=== PATIENT | male | born 1940 | race Caucasian/White ===

== ENCOUNTER 2018-08-27 02:30 | Inpatient (IN) | payer MEDICARE, OTHER ==
[~2018-08-27] VITALS: Ht 160 cm; Wt 49.9 kg
[2018-08-27] VITALS (7 sets, daily range): BP systolic 110–141; BP diastolic 64–90
[2018-08-27] MEDS ORDERED: Isovue-300 100ml vial INJ PRN (03:00)
[2018-08-27] MEDS ORDERED: Morphine Sulfate 2mg/ml Inj IVP ONE (03:00)
--- NOTE | 2018-08-27 03:00 | Emergency Room Report ---
History of Present Illness General Chief Complaint: Vomiting Source: Patient, Family Member Present Illness HPI This is a 78-year-old [place] male with a history of CAD with 2 stents. He has no abdominal surgery. He presents with chief complaint of epigastric pain and vomiting. Has persistent vomiting since 8 PM, 7 hours prior to arrival. Vomiting is nonbloody nonbilious. No fever or chills. No chest pain. No diarrhea. Pain is sharp and crampy. 7 out of 10. No radiation. Allergies: Coded Allergies: No Known Allergies (Unverified , 08/27/18) Patient History Past Medical History: see triage record, old chart reviewed, CAD Past Surgical History: other Pertinent Family History: none Social History: Denies: smoking Immunizations: other Reviewed Nursing Documentation: PMH: Agreed; PSxH: Agreed Nursing Documentation-PMH Past Medical History: No History, Except For Hx Cardiac Problems: Yes - stents placed 7 years ago Review of Systems Eye: Denies: eye pain, blurred vision ENT: Denies: ear pain, nose congestion, throat swelling Respiratory: Denies: cough, shortness of breath Cardiovascular: Denies: chest pain, palpitations Gastrointestinal: Reports: abdominal pain, nausea, vomiting; Denies: diarrhea Musculoskeletal: Denies: back pain, joint pain Skin: Denies: rash Neurological: Denies: headache, numbness Endocrine: Denies: increased thirst, increased urine Hematologic/Lymphatic: Denies: easy bruising All Other Systems: negative except mentioned in HPI Physical Exam Vital Signs Date Time Temp Pulse Resp B/P (MAP) Pulse Ox O2 Delivery O2 Flow Rate FiO2 08/27/18 02:37 115 16 151/82 100 Room Air vitals unremarkable Sp02 EP Interpretation: reviewed, normal General Appearance: well appearing, no apparent distress, alert Head: normocephalic, atraumatic Eyes: bilateral eye PERRL, bilateral eye EOMI ENT: hearing grossly normal, normal pharynx Neck: full range of motion, supple, no meningismus Respiratory: chest non-tender, lungs clear, normal breath sounds Cardiovascular #1: regular rate, rhythm, no murmur Gastrointestinal: no mass, no organomegaly, no bruit, non-distended, abnormal bowel sounds - hyperactive, tenderness - epigastric Musculoskeletal: back normal, gait/station normal, normal range of motion Neurologic: alert, oriented x3 Psychiatric: mood/affect normal Skin: warm/dry Medical Decision Making Diagnostic Impression: Primary Impression: Abdominal pain Qualified Codes: R10.84 - Generalized abdominal pain Additional Impressions: Nausea & vomiting Qualified Codes: R11.2 - Nausea with vomiting, unspecified Dehydration Ileus ER Course Patient presents with abdominal pain and vomiting. Labs show a slight elevation of lipase. He had a large amount of vomiting here. Better now. CT scan show air-fluid level and most likely ileus. Early small bowel obstruction less likely. Because of his cardiac history, dehydration, intractable vomiting, will admit for IV fluids and antiemetics. I contacted Dr. Bolivar for admission. EKG Diagnostic Results Rate: tachycardiac Rhythm: NSR ST Segments: other - right bundle branch block Rhythm Strip Diag. Results Rhythm Strip Time: 03:00 EP Interpretation: yes Rate: 100 Rhythm: NSR, no PVC's, no ectopy Last Vital Signs Date Time Temp Pulse Resp B/P (MAP) Pulse Ox O2 Delivery O2 Flow Rate FiO2 08/27/18 02:37 115 16 151/82 100 Room Air Status: improved Disposition: ADMITTED INPATIENT Condition: Serious Sanjiv Cuevas MD Aug 27, 2018 03:00
[2018-08-27 03:20] LABS: HEMATOCRIT 44.9 % (42.0-52.0); HEMOGLOBIN 15.6 G/DL (14.2-18.0); MEAN CORPUSCULAR VOLUME 94 FL (80-99); PLATELET COUNT 237 K/UL (150-450); RED CELL DISTRIBUTION WIDTH 10.7 % (11.6-14.8); WHITE BLOOD COUNT 9.3 K/UL (4.8-10.8)
[2018-08-27 03:23] LABS: ANION GAP 10 mmol/L (5-15); BLOOD UREA NITROGEN 11 mg/dL (7-18); CALCIUM 10.2 MG/DL (8.5-10.1); CARBON DIOXIDE 29 MMOL/L (21-32); CHLORIDE 98 MMOL/L (98-107); POTASSIUM 3.6 MMOL/L (3.5-5.1); SODIUM 137 MMOL/L (136-145)
[2018-08-27 03:25] LABS: INR 1.1 (0.9-1.1)
[2018-08-27 03:35] LABS: ALANINE AMINOTRANSFERASE 39 U/L (12-78); ALBUMIN 4.3 G/DL (3.4-5.0); ALBUMIN/GLOBULIN RATIO 1.1 (1.0-2.7); ALKALINE PHOSPHATASE 69 U/L (46-116); ASPARTATE AMINO TRANSFERASE 23 U/L (15-37); BILIRUBIN,TOTAL 1.6 MG/DL (0.2-1.0)
[2018-08-27 03:46] LABS: BILIRUBIN,DIRECT 0.3 MG/DL (0.0-0.3)
[2018-08-27 05:17] LABS: BILIRUBIN, URINE NEGATIVE (NEGATIVE); COLOR,URINE PALE YELLOW; GLUCOSE, URINE (UA) NEGATIVE (NEGATIVE); KETONES,URINE 2+ (NEGATIVE); LEUKOCYTE ESTERASE ,URINE NEGATIVE (NEGATIVE); NITRITE,URINE NEGATIVE (NEGATIVE); PH,URINE 8 (4.5-8.0); UROBILINOGEN,URINE NORMAL MG/DL (0.0-1.0)
[2018-08-27] MEDS ORDERED: VASCEPA1 GM PO (05:26)
[2018-08-27] MEDS ORDERED: CICLOPIROX60 ML TP (05:26)
[2018-08-27] MEDS ORDERED: ROZEREM8 MG PO (05:26)
[2018-08-27] MEDS ORDERED: ASPIR 8181 MG ORAL (05:26)
[2018-08-27] MEDS ORDERED: CILOSTAZOL100 MG PO (05:26)
[2018-08-27] MEDS ORDERED: VITAMIN D250000 UNI1 ORAL (05:26)
[2018-08-27] MEDS ORDERED: METFORMIN HCL500 M1 ORAL (05:26)
[2018-08-27] MEDS ORDERED: DUTASTERIDE0.5 MG PO (05:26)
[2018-08-27] MEDS ORDERED: CIALIS5 MG PO (05:26)
[2018-08-27] MEDS ORDERED: TRAMADOL HCL50 MG ORAL (05:26)
[2018-08-27] MEDS ORDERED: NIACIN500 M2 ORAL (05:26)
[2018-08-27] MEDS ORDERED: PLAVIX75 MG ORAL (05:26)
[2018-08-27] MEDS ORDERED: CRESTOR20 MG ORAL (05:26)
[2018-08-27 05:31] LABS: APPEARANCE,URINE CLEAR; PROTEIN,URINE NEGATIVE (NEGATIVE)
[2018-08-27] MEDS: Morphine Sulfate 2mg/ml Inj IVP PRN ×3 (08:32→18:03)
--- NOTE | 2018-08-27 09:17 | Diagnostic Imaging Report ---
Indication: Abdominal pain Technique: Continuous helical transaxial imaging of the abdomen and pelvis was obtained from the lung bases to the pubic symphysis during intravenous contrast administration. Coronal 2-D reformats were also obtained. Study obtained in a Siemens sensation [address] Automatic Exposure Control was utilized. Total Dose length Product (DLP): 551.[address] Dose Index Volume (CTDIvol): 10.99 mGy Comparison: None Findings: The lung bases are essentially clear. There are coronary calcifications and scattered mural calcifications within the aorta noted. There is a mild to moderate generalized distention of small bowel in the mid to proximal small bowel. Gradual transition noted with relatively decompressed normal-appearing distal small bowel including the terminal ileum. There is no free air or evidence of pneumatosis. No free fluid identified. Urinary bladder is unremarkable. Normal appendix noted. No hydronephrosis seen. Several bilateral renal cysts are noted. Small hiatal hernia is present. The liver and spleen and pancreas are unremarkable. Gallbladder is contracted. IMPRESSION: Distention of the proximal to mid small bowel. Small bowel enteritis is probably most likely. The possibility of a partial bowel obstruction not excluded. Correlate clinically. Follow-up recommended. Bilateral renal cysts. Contracted gallbladder not evaluated well Atherosclerotic vascular disease. Normal appendix. [facility] has communicated the preliminary results to the Emergency Department. Their findings are largely concordant with this report. The CT scanner at [facility] is accredited by the [employer] and the scans are performed using dose optimization techniques as appropriate to a performed exam including Automatic Exposure control.
[2018-08-27] MEDS: Cilostazol 100mg tab ORAL SCH ×2 (10:30→20:27)
[2018-08-27] MEDS ORDERED: NovoLOG Insulin Flexpen SUBQ SCH (11:30)
--- NOTE | 2018-08-27 12:17 | Consultation ---
History of Present Illness General Date patient seen: Aug 27, 2018 Chief Complaint: Vomiting Present Illness HPI 8-year-old Kazakh male with a history of CAD with 2 stents presented to ER with chief complaint of epigastric pain and vomiting. Has persistent vomiting since 8 PM, 7 hours prior to arrival. Vomiting is nonbloody nonbilious. No fever or chills. No chest pain. No diarrhea. Pain is sharp and crampy. 7 out of 10. No radiation. He had such an episode around 8 month ago and was seen and treated at a hospital close to [facility], most likely [facility]. His CT showed small bowel dilatation. He is admitted for further work up. Allergies: Coded Allergies: No Known Allergies (Unverified , 08/27/18) Medication History Scheduled Aspirin* (Aspir 81*), 81 MG ORAL DAILY, (Reported) Cilostazol* (Cilostazol*), 100 MG PO TWICE A DAY, (Reported) Clopidogrel Bisulfate* (Plavix*), 75 MG ORAL DAILY, (Reported) Ergocalciferol (Vitamin D2)* (Vitamin D*), 50,000 UNIT ORAL ONCE A WEEK, ( Reported) Metformin Hcl* (Metformin Hcl*), 500 MG ORAL TWICE A DAY, (Reported) Niacin Er* (Niacin Er*), 500 MG ORAL DAILY, (Reported) Rosuvastatin Calcium* (Crestor*), 20 MG ORAL DAILY, (Reported) Tadalafil (Cialis), 5 MG PO DAILY, (Reported) Scheduled PRN Tramadol Hcl* (Ultram*), 50 MG ORAL Q6H PRN for For Pain, (Reported) Miscellaneous Medications Ciclopirox Olamine (Ciclopirox), 30 ML TP, (Reported) Dutasteride (Dutasteride), 0.5 MG PO, (Reported) Icosapent Ethyl (Vascepa), 1 GM PO, (Reported) Ramelteon (Rozerem), 8 MG PO, (Reported) Patient History Healthcare decision maker Resuscitation status Full Code Advanced Directive on File Past Medical/Surgical History Past Medical/Surgical History: (1) CAD (coronary artery disease) Review of Systems All Other Systems: negative except mentioned in HPI Physical Exam General Appearance: WD/WN Lines, tubes and drains: peripheral HEENT: normocephalic, atraumatic Neck: non-tender, normal alignment Respiratory/Chest: chest wall non-tender, lungs clear Cardiovascular/Chest: normal peripheral pulses, normal rate, regular rhythm Abdomen: normal bowel sounds, non tender Extremities: normal range of motion, non-tender Skin Exam: normal pigmentation Neurologic: form stripper II-XII grossly normal Last 24 Hour Vital Signs Date Time Temp Pulse Resp B/P (MAP) Pulse Ox O2 Delivery O2 Flow Rate FiO2 08/27/18 09:20 Room Air 08/27/18 08:00 98.6 101 20 141/90 (107) 96 08/27/18 06:30 97.6 92 16 130/70 100 Room Air 08/27/18 06:04 97.6 92 16 130/70 100 Room Air 08/27/18 05:58 Room Air 08/27/18 05:00 97.5 101 14 122/66 100 Room Air 08/27/18 03:22 92 16 Room Air 08/27/18 03:20 97.6 92 16 110/69 100 Room Air 08/27/18 02:37 115 16 151/82 100 Room Air Laboratory Tests Test 08/27/18 03:00 08/27/18 04:30 White Blood Count 9.3 K/UL (4.8-10.8) Red Blood Count 4.80 M/UL (4.70-6.10) Hemoglobin 15.6 G/DL (14.2-18.0) Hematocrit 44.9 % (42.0-52.0) Mean Corpuscular Volume 94 FL (80-99) Mean Corpuscular Hemoglobin 32.4 PG (27.0-31.0) H Mean Corpuscular Hemoglobin Concent 34.7 G/DL (32.0-36.0) Red Cell Distribution Width 10.7 % (11.6-14.8) L Platelet Count 237 K/UL (150-450) Mean Platelet Volume 6.3 FL (6.5-10.1) L Neutrophils (%) (Auto) % (45.0-75.0) Lymphocytes (%) (Auto) % (20.0-45.0) Monocytes (%) (Auto) % (1.0-10.0) Eosinophils (%) (Auto) % (0.0-3.0) Basophils (%) (Auto) % (0.0-2.0) Prothrombin Time 11.9 SEC (9.30-11.50) H Prothromb Time International Ratio 1.1 (0.9-1.1) Activated Partial Thromboplast Time 27 SEC (23-33) Sodium Level 137 MMOL/L (136-145) Potassium Level 3.6 MMOL/L (3.5-5.1) Chloride Level 98 MMOL/L (98-107) Carbon Dioxide Level 29 MMOL/L (21-32) Anion Gap 10 mmol/L (5-15) Blood Urea Nitrogen 11 mg/dL (7-18) Creatinine 1.0 MG/DL (0.55-1.30) Estimat Glomerular Filtration Rate mL/min (>60) Glucose Level 162 MG/DL (74-106) H Calcium Level 10.2 MG/DL (8.5-10.1) H Total Bilirubin 1.6 MG/DL (0.2-1.0) H Direct Bilirubin 0.3 MG/DL (0.0-0.3) Aspartate Amino Transf (AST/SGOT) 23 U/L (15-37) Alanine Aminotransferase (ALT/SGPT) 39 U/L (12-78) Alkaline Phosphatase 69 U/L (46-116) Total Protein 8.3 G/DL (6.4-8.2) H Albumin 4.3 G/DL (3.4-5.0) Globulin 4.0 g/dL Albumin/Globulin Ratio 1.1 (1.0-2.7) Lipase 444 U/L (73-393) H Urine Color Pale yellow Urine Appearance Clear Urine pH 8 (4.5-8.0) Urine Specific [place] 1.005 (1.005-1.035) Urine Protein Negative (NEGATIVE) Urine Glucose (UA) Negative (NEGATIVE) Urine Ketones 2+ (NEGATIVE) H Urine Blood Negative (NEGATIVE) Urine Nitrite Negative (NEGATIVE) Urine Bilirubin Negative (NEGATIVE) Urine Urobilinogen Normal MG/DL (0.0-1.0) Urine Leukocyte Esterase Negative (NEGATIVE) Height (Feet): 5 Height (Inches): 3.00 Weight (Pounds): 110 Medications Current Medications Medications (Trade) Dose Ordered Sig/Manuel Route PRN Reason Start Time Stop Time Status Last Admin Dose Admin Acetaminophen (Tylenol) 650 mg Q6H PRN ORAL Mild Pain/Temp > 100.5 08/27/18 08:15 09/26/18 08:14 Cilostazol (Pletal) 100 mg Q12HR ORAL 08/27/18 10:30 09/26/18 10:29 Dextrose (Dextrose 50%) 25 ml Q30M PRN IV Hypoglycemia 08/27/18 08:15 09/26/18 08:14 Dextrose (Dextrose 50%) 50 ml Q30M PRN IV Hypoglycemia 08/27/18 08:15 09/26/18 08:14 Insulin Aspart (NovoLOG) BEFORE MEALS AND HS SUBQ 08/27/18 11:30 09/26/18 11:29 Iopamidol (Isovue-300 100ml) 100 ml NOW PRN INJ Radiology Procedure 08/27/18 03:00 Morphine Sulfate (Morphine Sulfate) 2 mg Q4H PRN IVP Moderate Pain (Pain Scale 4-6) 08/27/18 08:15 09/03/18 08:14 08/27/18 08:32 Morphine Sulfate (Morphine Sulfate) 4 mg Q4H PRN IVP Severe Pain (Pain Scale 7-10) 08/27/18 08:15 09/03/18 08:14 Ondansetron HCl (Zofran) 4 mg Q4H PRN IVP Nausea & Vomiting 08/27/18 08:15 09/26/18 08:14 08/27/18 08:30 Sodium Chloride 1,000 ml @ 75 mls/hr [id number] IV 08/27/18 08:15 09/26/18 08:14 08/27/18 08:35 Assessment/Plan Problem List: (1) Ileus ICD Codes: K56.7 - Ileus, unspecified SNOMED: 858367940 (2) Abdominal pain ICD Codes: R10.9 - Unspecified abdominal pain SNOMED: [id number] Qualifiers: Qualified Codes: R10.84 - Generalized abdominal pain (3) Nausea & vomiting ICD Codes: R11.2 - Nausea with vomiting, unspecified SNOMED: 00612856 Qualifiers: Qualified Codes: R11.2 - Nausea with vomiting, unspecified (4) CAD (coronary artery disease) ICD Codes: I25.10 - Atherosclerotic heart disease of [place] coronary artery without angina pectoris SNOMED: 56630252 Assessment/Plan NPO iv fluids stools for c/s GI and ID evaluation check electrolytes symptomatic treatment Preston Peñaloza MD Aug 27, 2018 12:17
--- NOTE | 2018-08-27 14:29 | GI Initial Consult Note ---
History of Present Illness General Date patient seen: Aug 27, 2018 Time patient seen: 14:21 Reason for Hospitalization: Vomiting Referring physician: ZACK WILSON Reason for Consultation: abdominal pain Present Illness HPI This is a 78-year-old Yoruba male with a history of CAD with 2 stents. He has no abdominal surgery. He presents with chief complaint of epigastric pain and vomiting. Has persistent vomiting since 8 PM, 7 hours prior to arrival. Vomiting is nonbloody nonbilious. No fever or chills. No chest pain. No diarrhea. Pain is sharp and crampy. 7 out of 10. No radiation. Home Meds Reported Medications Dutasteride (Dutasteride) 0.5 Mg Capsule, 0.5 MG PO, CAP 08/27/18 Ciclopirox Olamine (CICLOPIROX) 60 Ml Suspension, 30 ML TP 08/27/18 Ramelteon (ROZEREM) 8 Mg Tablet, 8 MG PO, TAB 08/27/18 Cilostazol* (CILOSTAZOL*) 100 Mg Tablet, 100 MG PO TWICE A DAY, TAB 08/27/18 Tramadol Hcl* (ULTRAM*) 50 Mg Tablet, 50 MG ORAL Q6H PRN for For Pain, #30 TAB 0 Refills 08/27/18 Tadalafil (CIALIS) 5 Mg Tablet, 5 MG PO DAILY, TAB 08/27/18 Metformin Hcl* (METFORMIN HCL*) 500 Mg Tablet, 500 MG ORAL TWICE A DAY, TAB 08/27/18 Rosuvastatin Calcium* (CRESTOR*) 20 Mg Tablet, 20 MG ORAL DAILY, TAB 08/27/18 Icosapent Ethyl (VASCEPA) 1 Gm Capsule, 1 GM PO, CAP 08/27/18 Niacin Er* (NIACIN ER*) 500 Mg Tablet.er, 500 MG ORAL DAILY, #30 CAP 0 Refills 08/27/18 Clopidogrel Bisulfate* (PLAVIX*) 75 Mg Tablet, 75 MG ORAL DAILY, TAB 08/27/18 Ergocalciferol (Vitamin D2)* (VITAMIN D*) 50,000 Unit Capsule, 67810 UNIT ORAL ONCE A WEEK, CAP 08/27/18 Aspirin* (ASPIR 81*) 81 Mg Tablet.dr, 81 MG ORAL DAILY, TAB 08/27/18 Med list reviewed/reconciled: Yes Allergies: Coded Allergies: No Known Allergies (Unverified , 08/27/18) Patient History Limited by: medical condition History Provided By: Patient, Medical Record PMH Narrative Past Medical History: see triage record, old chart reviewed, CAD Past Surgical History: other Pertinent Family History: none Social History: Denies: smoking Immunizations: other Reviewed Nursing Documentation: PMH: Agreed; PSxH: Agreed Nursing Documentation-PM Past Medical History: No History, Except For Hx Cardiac Problems: Yes - stents placed 7 years ago Social History: Denies: smoking, alcohol use, drug use, other Review of Systems All Other Systems: negative except mentioned in HPI Physical Exam Vital Signs Date Time Temp Pulse Resp B/P (MAP) Pulse Ox O2 Delivery O2 Flow Rate FiO2 08/27/18 02:37 115 16 151/82 100 Room Air 08/27/18 03:20 97.6 Sp02 EP Interpretation: reviewed, normal Labs Laboratory Tests Test 08/27/18 03:00 08/27/18 04:30 White Blood Count 9.3 K/UL (4.8-10.8) Red Blood Count 4.80 M/UL (4.70-6.10) Hemoglobin 15.6 G/DL (14.2-18.0) Hematocrit 44.9 % (42.0-52.0) Mean Corpuscular Volume 94 FL (80-99) Mean Corpuscular Hemoglobin 32.4 PG (27.0-31.0) H Mean Corpuscular Hemoglobin Concent 34.7 G/DL (32.0-36.0) Red Cell Distribution Width 10.7 % (11.6-14.8) L Platelet Count 237 K/UL (150-450) Mean Platelet Volume 6.3 FL (6.5-10.1) L Neutrophils (%) (Auto) % (45.0-75.0) Lymphocytes (%) (Auto) % (20.0-45.0) Monocytes (%) (Auto) % (1.0-10.0) Eosinophils (%) (Auto) % (0.0-3.0) Basophils (%) (Auto) % (0.0-2.0) Prothrombin Time 11.9 SEC (9.30-11.50) H Prothromb Time International Ratio 1.1 (0.9-1.1) Activated Partial Thromboplast Time 27 SEC (23-33) Sodium Level 137 MMOL/L (136-145) Potassium Level 3.6 MMOL/L (3.5-5.1) Chloride Level 98 MMOL/L (98-107) Carbon Dioxide Level 29 MMOL/L (21-32) Anion Gap 10 mmol/L (5-15) Blood Urea Nitrogen 11 mg/dL (7-18) Creatinine 1.0 MG/DL (0.55-1.30) Estimat Glomerular Filtration Rate mL/min (>60) Glucose Level 162 MG/DL (74-106) H Hemoglobin A1c 5.6 % (4.3-6.0) Calcium Level 10.2 MG/DL (8.5-10.1) H Total Bilirubin 1.6 MG/DL (0.2-1.0) H Direct Bilirubin 0.3 MG/DL (0.0-0.3) Aspartate Amino Transf (AST/SGOT) 23 U/L (15-37) Alanine Aminotransferase (ALT/SGPT) 39 U/L (12-78) Alkaline Phosphatase 69 U/L (46-116) Total Protein 8.3 G/DL (6.4-8.2) H Albumin 4.3 G/DL (3.4-5.0) Globulin 4.0 g/dL Albumin/Globulin Ratio 1.1 (1.0-2.7) Lipase 444 U/L (73-393) H Urine Color Pale yellow Urine Appearance Clear Urine pH 8 (4.5-8.0) Urine Specific [place] 1.005 (1.005-1.035) Urine Protein Negative (NEGATIVE) Urine Glucose (UA) Negative (NEGATIVE) Urine Ketones 2+ (NEGATIVE) H Urine Blood Negative (NEGATIVE) Urine Nitrite Negative (NEGATIVE) Urine Bilirubin Negative (NEGATIVE) Urine Urobilinogen Normal MG/DL (0.0-1.0) Urine Leukocyte Esterase Negative (NEGATIVE) General Appearance: well appearing, no apparent distress, alert Head: normocephalic EENT: PERRL/EOMI, normal ENT inspection Neck: supple Respiratory: normal breath sounds, no respiratory distress Cardiovascular: normal rate Gastrointestinal: normal inspection, non tender, soft, normal bowel sounds, non -distended Rectal: deferred Genitourinary: deferred Musculoskeletal: normal inspection, back normal Neurologic: normal inspection, alert, oriented x3, responsive Psychiatric: normal inspection, judgement/insight normal, memory normal Skin: normal inspection, normal color, no rash, warm/dry, palpation normal, well hydrated Lymphatic: normal inspection, no adenopathy Current Medications Current Medications Medications (Trade) Dose Ordered Sig/Manuel Route PRN Reason Start Time Stop Time Status Last Admin Dose Admin Acetaminophen (Tylenol) 650 mg Q6H PRN ORAL Mild Pain/Temp > 100.5 08/27/18 08:15 09/26/18 08:14 Cilostazol (Pletal) 100 mg Q12HR ORAL 08/27/18 10:30 09/26/18 10:29 Clopidogrel Bisulfate (Plavix) 75 mg DAILY ORAL 08/28/18 09:00 09/27/18 08:59 Dextrose (Dextrose 50%) 25 ml Q30M PRN IV Hypoglycemia 08/27/18 08:15 09/26/18 08:14 Dextrose (Dextrose 50%) 50 ml Q30M PRN IV Hypoglycemia 08/27/18 08:15 09/26/18 08:14 Insulin Aspart (NovoLOG) BEFORE MEALS AND HS SUBQ 08/27/18 16:30 09/26/18 16:29 Iopamidol (Isovue-300 100ml) 100 ml NOW PRN INJ Radiology Procedure 08/27/18 03:00 Morphine Sulfate (Morphine Sulfate) 2 mg Q4H PRN IVP Moderate Pain (Pain Scale 4-6) 08/27/18 08:15 09/03/18 08:14 08/27/18 12:44 Morphine Sulfate (Morphine Sulfate) 4 mg Q4H PRN IVP Severe Pain (Pain Scale 7-10) 08/27/18 08:15 09/03/18 08:14 Ondansetron HCl (Zofran) 4 mg Q4H PRN IVP Nausea & Vomiting 08/27/18 08:15 09/26/18 08:14 08/27/18 08:30 Sodium Chloride 1,000 ml @ 75 mls/hr [id number] IV 08/27/18 08:15 09/26/18 08:14 08/27/18 08:35 GI: Plan Problems: (1) Diabetes mellitus (2) CAD (coronary artery disease) (3) Abdominal pain (4) Dehydration (5) Ileus (6) Nausea & vomiting Plan CT AP reviewed >> Distention of the proximal to mid small bowel. elevated lipase levels maintain NPO + IVFs, trial clear liquid tomorrow autopsy pathologist imaging prn pain mgmt zofran prn ppi fu labs, trend lipase patient on plavix Discussed with Dr. Galindo. Thank you for this patient referral, we will follow. The patient was seen and examined at bedside and all new and available data was reviewed in the patients chart. I agree with the above findings, impression and plan. (Patient seen earlier today. Signature stamp does not reflect patient encounter time.). - MD Faith [facility] Y[facility] JACKER Aug 27, 2018 14:29
--- NOTE | 2018-08-27 15:33 | History & Physical ---
History and Physical History & Physicial Jerry Bolivar MD Aug 27, 2018 15:33
[2018-08-27] MEDS: NovoLOG Insulin Flexpen SUBQ SCH ×2 (16:30→21:00)
--- NOTE | 2018-08-27 17:51 | Consultation ---
Consult Note Consult Note [id number] Jeremiah Chin MD Aug 27, 2018 17:51
[2018-08-27] MEDS: cefTRIAXone 1 GM in D5W 50 ML IVPB SCH (18:03)
--- NOTE | 2018-08-27 18:15 | History and Physical Report ---
DATE OF ADMISSION: 08/27/2018 CHIEF COMPLAINT: Epigastric pain associated with nausea and vomiting. HISTORY OF PRESENT ILLNESS: This is a 78-year-old very delightful [place] gentleman with past medical history significant for diabetes type 2 controlled on the diet at this time, history of coronary artery disease, status post percutaneous transluminal coronary angioplasty with stent placement x2, and dyslipidemia, who has presented to the hospital complaining about abdominal pain, mostly located in the epigastric area associated with nausea and vomiting, started since 8 p.m. on the day of admission. Seven days prior to arrival to the ER, the patient has had the vomiting, nonbilious, nonbloody emesis. No fever or chills. No chest pain. No diarrhea, however last night, he had episode of diarrhea. The pain is sharp and crampy, 7/10 in intensity, no radiation. Shortly after initial evaluation in the emergency room, the patient was admitted to the hospital with abdominal pain and nausea and vomiting, possible gastroenteritis. PAST MEDICAL HISTORY/PAST SURGICAL HISTORY: As above. History of coronary artery disease, borderline diabetes, and dyslipidemia. Denies any past abdominal surgery. MEDICATIONS AT HOME: Significant for, 1. Aspirin. 2. Ciclopirox. 3. The patient is on cilostazol. 4. Plavix. 5. Dutasteride. 6. Vitamin D. 7. Vascepa. 8. Metformin. 9. Niacin. 10. Rozerem. 11. Crestor. 12. Cialis. 13. Ultram. ALLERGIES: No known drug allergies. SOCIAL HISTORY: The patient denies any smoking, alcohol, or drugs. He socially drinks. No substance abuse. Lives with . FAMILY HISTORY: Noncontributory. REVIEW OF SYSTEMS: Mostly as above. Denies any dysuria, frequency, or hematuria. Denies any hemoptysis or hematochezia. Denies any suicidal or homicidal ideation. Denies any loss of consciousness. PHYSICAL EXAMINATION: VITAL SIGNS: On admission, temperature 97.6, pulse of 92, respirations 16, blood pressure 100/70, repeat one is a 141/90, and repeat temperature is 99.1. GENERAL: The patient is awake, responsive, and in no acute distress. HEAD AND NECK: Pupils are reactive to light. Extraocular movements intact. Neck was supple. No JVD. LUNGS: Good air entry. No wheezing or rales. HEART: S1, S2. Regular rhythm. No murmur or gallops. ABDOMEN: Soft. Tenderness in the epigastric area. No rebound tenderness. No fluid shift. EXTREMITIES: No cyanosis, clubbing, or edema. NEUROLOGIC: Cranial nerves II through XII grossly intact. Motor is 5/5 in all the extremities. Gait is intact. RECTAL AND GENITOURINARY: Refused and deferred. LABORATORY AND DIAGNOSTIC DATA: On admission from the ER, WBC of 9.3, hemoglobin 15, hematocrit 44, and platelets is 237,000. Sodium 137, potassium 3.6, chloride 98, bicarbonate 29, BUN 11, creatinine is 1.0, and glucose is 162. Calcium is 10.2. Total bilirubin of 1.6. AST of 23 and ALT of 39. PT of 11. INR 1.1. PTT of 27. UA is +2 ketones. The patient had a CT of the abdomen and pelvic done show that the distention of the proximal to mid small bowel enteritis is probably most likely the possibility of partial bowel obstruction, not excluded, correlation with the clinical evaluation, bilateral renal cysts, contracted gallbladder, atherosclerotic vascular disease, and normal appendix. ASSESSMENT: 1. Abdominal pain, possibly due to the enteritis. 2. Coronary artery disease status post percutaneous transluminal coronary angioplasty with stent. 3. Dyslipidemia. 4. Diabetes type 2. 5. Dehydration. PLAN: 1. Admit the patient to medical/surgical. 2. We will will follow up laboratory. 3. IV hydration. 4. Accu-Chek with sliding scale. 5. Code status, Full Code. 6. DVT prophylaxis with heparin subcutaneous. 7. Start the patient on broad-spectrum antibiotic with Rocephin and Flagyl. 8. Discussed with the family member at the bedside extensively. 9. Follow up with Dr. Galindo, GI consultation and Dr. Peñaloza, Pulmonary Critical Care. Jerry Bolivar M.D. DR: KAREL JOB#: [id number] CC:
--- NOTE | 2018-08-27 21:00 | Consultation ---
DATE OF CONSULTATION: 08/27/2018 INFECTIOUS DISEASE CONSULTATION CONSULTING PHYSICIAN: Jeremiah Chin M.D. REQUESTING PHYSICIAN: . REASON FOR CONSULTATION: Evaluation of the patient for gastroenteritis and antibiotic management. HISTORY OF PRESENT ILLNESS: The patient is a 78-year-old male with past medical significant for CAD, borderline diabetes, status post two stents placement in coronary arteries, who came to the hospital with sudden onset of epigastric pain, nausea, vomiting, and diarrhea. The patient's symptoms resolved since last night. The patient has resumed his oral intake (liquid diet). The patient is tolerating so far and has no further diarrhea. The patient has no fever or chills. At the time of admission, his white blood cells is unremarkable. CT of the abdomen showed evidence of small bowel enteritis ? small partial bowel obstruction. Infectious Disease consultation has been requested for further evaluation of the patient's antibiotic management. PAST MEDICAL HISTORY: 1. CAD. 2. Borderline diabetes. MEDICATIONS: On Rocephin. ALLERGIES: No known drug allergies. SOCIAL HISTORY: Negative for alcohol abuse and smoking. FAMILY HISTORY: Not contributing. PHYSICAL EXAMINATION: VITAL SIGNS: Temperature 97, pulse 86, respiratory rate 18, T-max 99.9, and blood pressure 132/83. HEENT: No pale conjunctivae. No icterus NECK: No lymphadenopathy. CHEST: Coarse breathing sounds. HEART: S1 and S2. ABDOMEN: Soft and nontender. EXTREMITIES: No cyanosis. NEUROLOGIC: Awake and alert. LABORATORY AND DIAGNOSTIC DATA: White blood is 9.3, hemoglobin 15, and platelets 237,000. UA unremarkable. BUN 11 and creatinine 0.3. ALT, AST, and alkaline phosphatase are unremarkable. ASSESSMENT: The patient is a 78-year-old male with, 1. Nausea and vomiting/diarrhea that has resolved (appears to be either due to water infection or most likely a toxin-mediated gastroenteritis). 2. Afebrile. 3. Normal white blood cells. 4. History of coronary artery disease. 5. Prediabetes. PLAN: 1. We will hold off on antibiotics. 2. Monitor the patient clinically. 3. Monitor CBC and BMP. 4. Based on the patient's clinical course and labs, we will do further recommendations. 5. Gastrointestinal is following the patient. Thank you, , for allowing me to participate in the care of this patient. I will follow the patient with you during this hospitalization. Jeremiah Chin M.D. DR: ANDRIA JOB#: [id number] CC:
[2018-08-28] VITALS: BP 112/74
[2018-08-28] MEDS: Morphine Sulfate 2mg/ml Inj IVP PRN ×4 (01:52→19:58)
[2018-08-28 04:00] VITALS: BP 109/69
[2018-08-28] MEDS: NovoLOG Insulin Flexpen SUBQ SCH ×4 (06:30→20:45)
[2018-08-28 06:49] LABS: BASOPHILS % (AUTO) 0.7 % (0.0-2.0); EOSINOPHILS % (AUTO) 2.3 % (0.0-3.0); HEMATOCRIT 34.4 % (42.0-52.0); HEMOGLOBIN 11.8 G/DL (14.2-18.0); MEAN CORPUSCULAR VOLUME 94 FL (80-99); PLATELET COUNT 162 K/UL (150-450); RED BLOOD COUNT 3.67 M/UL (4.70-6.10); RED CELL DISTRIBUTION WIDTH 10.7 % (11.6-14.8); WHITE BLOOD COUNT 7.4 K/UL (4.8-10.8)
[2018-08-28 06:58] LABS: ALANINE AMINOTRANSFERASE 15 U/L (12-78); ALBUMIN 2.9 G/DL (3.4-5.0); ALKALINE PHOSPHATASE 48 U/L (46-116); ANION GAP 8 mmol/L (5-15); ASPARTATE AMINO TRANSFERASE 22 U/L (15-37); BILIRUBIN,TOTAL 1.1 MG/DL (0.2-1.0); BLOOD UREA NITROGEN 10 mg/dL (7-18); CALCIUM 8.2 MG/DL (8.5-10.1); CARBON DIOXIDE 27 MMOL/L (21-32); CHLORIDE 106 MMOL/L (98-107); CREATININE 0.7 MG/DL (0.55-1.30); PHOSPHORUS 2.6 MG/DL (2.5-4.9); POTASSIUM 3.4 MMOL/L (3.5-5.1); SODIUM 141 MMOL/L (136-145)
[2018-08-28 07:09] LABS: BILIRUBIN,DIRECT 0.2 MG/DL (0.0-0.3)
[2018-08-28] MEDS: Cilostazol 100mg tab ORAL SCH ×2 (08:24→20:42)
--- NOTE | 2018-08-28 08:26 | Infectious Diseases Prog Note ---
Assessment/Plan Assessment/Plan Nausea and vomiting/diarrhea that has resolved (appears to be either due to water infection or most likely a toxin-mediated gastroenteritis). Afebrile. Normal white blood cells. History of coronary artery disease. Prediabetes. PLAN: - Hold off on antibiotics.. - Monitor CBC and BMP. - Gastrointestinal is following the patient. I will follow the patient with you during this hospitalization. Subjective Allergies: Coded Allergies: No Known Allergies (Unverified , 08/27/18) Subjective Patient afebrile No abdominal pain Objective Vital Signs Last 24 Hour Vital Signs Date Time Temp Pulse Resp B/P (MAP) Pulse Ox O2 Delivery O2 Flow Rate FiO2 08/28/18 04:00 97.5 84 19 109/69 (82) 97 08/28/18 00:00 97.7 104 19 112/74 (87) 99 08/27/18 21:00 Room Air 08/27/18 20:00 97.4 87 19 111/64 (80) 98 08/27/18 16:00 99.9 95 19 130/69 (89) 96 08/27/18 12:00 99.1 102 20 132/83 (99) 98 08/27/18 09:20 Room Air Height (Feet): 5 Height (Inches): 3.00 Weight (Pounds): 110 Objective HEENT: NCAT, MMM CHEST: Coarse breathing sounds B/L No W. HEART: S1 and S2. ABDOMEN: Soft and nontender. NEUROLOGIC: Awake and alert. Laboratory Tests Test 08/28/18 04:50 White Blood Count 7.4 K/UL (4.8-10.8) Red Blood Count 3.67 M/UL (4.70-6.10) L Hemoglobin 11.8 G/DL (14.2-18.0) L Hematocrit 34.4 % (42.0-52.0) L Mean Corpuscular Volume 94 FL (80-99) Mean Corpuscular Hemoglobin 32.2 PG (27.0-31.0) H Mean Corpuscular Hemoglobin Concent 34.3 G/DL (32.0-36.0) Red Cell Distribution Width 10.7 % (11.6-14.8) L Platelet Count 162 K/UL (150-450) Mean Platelet Volume 6.5 FL (6.5-10.1) Neutrophils (%) (Auto) 67.0 % (45.0-75.0) Lymphocytes (%) (Auto) 22.0 % (20.0-45.0) Monocytes (%) (Auto) 8.0 % (1.0-10.0) Eosinophils (%) (Auto) 2.3 % (0.0-3.0) Basophils (%) (Auto) 0.7 % (0.0-2.0) Erythrocyte Sedimentation Rate Pending Sodium Level 141 MMOL/L (136-145) Potassium Level 3.4 MMOL/L (3.5-5.1) L Chloride Level 106 MMOL/L (98-107) Carbon Dioxide Level 27 MMOL/L (21-32) Anion Gap 8 mmol/L (5-15) Blood Urea Nitrogen 10 mg/dL (7-18) Creatinine 0.7 MG/DL (0.55-1.30) Estimat Glomerular Filtration Rate mL/min (>60) Glucose Level 87 MG/DL (74-106) Calcium Level 8.2 MG/DL (8.5-10.1) L Phosphorus Level 2.6 MG/DL (2.5-4.9) Magnesium Level 1.6 MG/DL (1.8-2.4) L Total Bilirubin 1.1 MG/DL (0.2-1.0) H Direct Bilirubin 0.2 MG/DL (0.0-0.3) Aspartate Amino Transf (AST/SGOT) 22 U/L (15-37) Alanine Aminotransferase (ALT/SGPT) 15 U/L (12-78) Alkaline Phosphatase 48 U/L (46-116) C-Reactive Protein, Quantitative 1.1 mg/dL (0.00-0.90) H Total Protein 5.8 G/DL (6.4-8.2) #L Albumin 2.9 G/DL (3.4-5.0) L Globulin 2.9 g/dL Albumin/Globulin Ratio 1.0 (1.0-2.7) Current Medications Medications (Trade) Dose Ordered Sig/Manuel Route PRN Reason Start Time Stop Time Status Last Admin Dose Admin Acetaminophen (Tylenol) 650 mg Q6H PRN ORAL Mild Pain/Temp > 100.5 08/27/18 08:15 09/26/18 08:14 Ceftriaxone Sodium 1 gm/ Dextrose 50 ml @ 100 mls/hr Q24H IVPB 08/27/18 17:00 09/03/18 16:59 08/27/18 18:03 Cilostazol (Pletal) 100 mg Q12HR ORAL 08/27/18 10:30 09/26/18 10:29 08/27/18 20:27 Clopidogrel Bisulfate (Plavix) 75 mg DAILY ORAL 08/28/18 09:00 09/27/18 08:59 Dextrose (Dextrose 50%) 25 ml Q30M PRN IV Hypoglycemia 08/27/18 08:15 09/26/18 08:14 Dextrose (Dextrose 50%) 50 ml Q30M PRN IV Hypoglycemia 08/27/18 08:15 09/26/18 08:14 Insulin Aspart (NovoLOG) BEFORE MEALS AND HS SUBQ 08/27/18 16:30 09/26/18 16:29 Iopamidol (Isovue-300 100ml) 100 ml NOW PRN INJ Radiology Procedure 08/27/18 03:00 Metronidazole 100 ml @ 100 mls/hr Q8H IVPB 08/27/18 16:00 09/03/18 15:59 08/27/18 23:56 Morphine Sulfate (Morphine Sulfate) 2 mg Q4H PRN IVP Moderate Pain (Pain Scale 4-6) 08/27/18 08:15 09/03/18 08:14 08/28/18 01:52 Morphine Sulfate (Morphine Sulfate) 4 mg Q4H PRN IVP Severe Pain (Pain Scale 7-10) 08/27/18 08:15 09/03/18 08:14 Ondansetron HCl (Zofran) 4 mg Q4H PRN IVP Nausea & Vomiting 08/27/18 08:15 09/26/18 08:14 08/27/18 08:30 Sodium Chloride 1,000 ml @ 75 mls/hr [id number] IV 08/27/18 08:15 09/26/18 08:14 08/27/18 20:27 Ezra Navarro MD Aug 28, 2018 08:26
[2018-08-28 08:42] VITALS: BP 102/63
[2018-08-28 12:00] VITALS: BP 102/60
--- NOTE | 2018-08-28 15:03 | Cardiology Report ---
APPROVED REPORT EKG Measurement Heart [id number] Sinus tachycardia Right bundle branch block T wave abnormality, consider inferior ischemia Abnormal ECG
[2018-08-28 15:58] VITALS: BP 127/74
--- NOTE | 2018-08-28 16:41 | Consultation ---
History of Present Illness General Date patient seen: Aug 27, 2018 Chief Complaint: Vomiting Referring physician: ZACK WILSON Reason for Consultation: abdominal pain Present Illness HPI 78-year-old male with past medical hx of opium dependence, anxiety and depression, CAD, borderline diabetes, status post two stents placement in coronary arteries, who came to the hospital with sudden onset of epigastric pain , nausea, vomiting, and diarrhea. the pt was awake all night and agitated. he has been vomiting and c/o severe pain Allergies: Coded Allergies: No Known Allergies (Unverified , 08/27/18) Medication History Scheduled Aspirin* (Aspir 81*), 81 MG ORAL DAILY, (Reported) Cilostazol* (Cilostazol*), 100 MG PO TWICE A DAY, (Reported) Clopidogrel Bisulfate* (Plavix*), 75 MG ORAL DAILY, (Reported) Ergocalciferol (Vitamin D2)* (Vitamin D*), 50,000 UNIT ORAL ONCE A WEEK, ( Reported) Metformin Hcl* (Metformin Hcl*), 500 MG ORAL TWICE A DAY, (Reported) Niacin Er* (Niacin Er*), 500 MG ORAL DAILY, (Reported) Rosuvastatin Calcium* (Crestor*), 20 MG ORAL DAILY, (Reported) Tadalafil (Cialis), 5 MG PO DAILY, (Reported) Scheduled PRN Tramadol Hcl* (Ultram*), 50 MG ORAL Q6H PRN for For Pain, (Reported) Miscellaneous Medications Ciclopirox Olamine (Ciclopirox), 30 ML TP, (Reported) Dutasteride (Dutasteride), 0.5 MG PO, (Reported) Icosapent Ethyl (Vascepa), 1 GM PO, (Reported) Ramelteon (Rozerem), 8 MG PO, (Reported) Patient History Limited by: medical condition History Provided By: Patient, Medical Record, PMD Healthcare decision maker Resuscitation status Full Code Advanced Directive on File Past Medical/Surgical History Past Medical/Surgical History: (1) Nausea & vomiting (2) Ileus (3) Dehydration (4) Abdominal pain (5) CAD (coronary artery disease) (6) Diabetes mellitus Review of Systems Psychiatric: Reports: prior hx, anxiety, depressed feelings, emotional problems Physical Exam General Appearance: alert, moderate distress, cachetic Neurologic: oriented x 3, responsive, depressed affect Last 24 Hour Vital Signs Date Time Temp Pulse Resp B/P (MAP) Pulse Ox O2 Delivery O2 Flow Rate FiO2 08/28/18 15:58 99.5 97 18 127/74 (91) 96 08/28/18 12:00 97.7 84 20 102/60 (74) 96 08/28/18 09:00 Room Air 08/28/18 08:42 98.1 89 17 102/63 (76) 97 08/28/18 04:00 97.5 84 19 109/69 (82) 97 08/28/18 00:00 97.7 104 19 112/74 (87) 99 08/27/18 21:00 Room Air 08/27/18 20:00 97.4 87 19 111/64 (80) 98 Intake and Output 08/27/18 08/28/18 19:00 07:00 Intake Total 840 ml 850 ml Output Total 800 ml Balance 840 ml 50 ml Intake Oral 240 ml IV Total 600 ml 850 ml Output Urine Total 800 ml # Voids 3 Laboratory Tests Test 08/28/18 04:50 White Blood Count 7.4 K/UL (4.8-10.8) Red Blood Count 3.67 M/UL (4.70-6.10) L Hemoglobin 11.8 G/DL (14.2-18.0) L Hematocrit 34.4 % (42.0-52.0) L Mean Corpuscular Volume 94 FL (80-99) Mean Corpuscular Hemoglobin 32.2 PG (27.0-31.0) H Mean Corpuscular Hemoglobin Concent 34.3 G/DL (32.0-36.0) Red Cell Distribution Width 10.7 % (11.6-14.8) L Platelet Count 162 K/UL (150-450) Mean Platelet Volume 6.5 FL (6.5-10.1) Neutrophils (%) (Auto) 67.0 % (45.0-75.0) Lymphocytes (%) (Auto) 22.0 % (20.0-45.0) Monocytes (%) (Auto) 8.0 % (1.0-10.0) Eosinophils (%) (Auto) 2.3 % (0.0-3.0) Basophils (%) (Auto) 0.7 % (0.0-2.0) Erythrocyte Sedimentation Rate 19 MM/HR (0-20) Sodium Level 141 MMOL/L (136-145) Potassium Level 3.4 MMOL/L (3.5-5.1) L Chloride Level 106 MMOL/L (98-107) Carbon Dioxide Level 27 MMOL/L (21-32) Anion Gap 8 mmol/L (5-15) Blood Urea Nitrogen 10 mg/dL (7-18) Creatinine 0.7 MG/DL (0.55-1.30) Estimat Glomerular Filtration Rate mL/min (>60) Glucose Level 87 MG/DL (74-106) Calcium Level 8.2 MG/DL (8.5-10.1) L Phosphorus Level 2.6 MG/DL (2.5-4.9) Magnesium Level 1.6 MG/DL (1.8-2.4) L Total Bilirubin 1.1 MG/DL (0.2-1.0) H Direct Bilirubin 0.2 MG/DL (0.0-0.3) Aspartate Amino Transf (AST/SGOT) 22 U/L (15-37) Alanine Aminotransferase (ALT/SGPT) 15 U/L (12-78) Alkaline Phosphatase 48 U/L (46-116) C-Reactive Protein, Quantitative 1.1 mg/dL (0.00-0.90) H Total Protein 5.8 G/DL (6.4-8.2) #L Albumin 2.9 G/DL (3.4-5.0) L Globulin 2.9 g/dL Albumin/Globulin Ratio 1.0 (1.0-2.7) Height (Feet): 5 Height (Inches): 3.00 Weight (Pounds): 110 Medications Current Medications Medications (Trade) Dose Ordered Sig/Manuel Route PRN Reason Start Time Stop Time Status Last Admin Dose Admin Acetaminophen (Tylenol) 650 mg Q6H PRN ORAL Mild Pain/Temp > 100.5 08/27/18 08:15 09/26/18 08:14 Ceftriaxone Sodium 1 gm/ Dextrose 50 ml @ 100 mls/hr Q24H IVPB 08/27/18 17:00 09/03/18 16:59 08/27/18 18:03 Cilostazol (Pletal) 100 mg Q12HR ORAL 08/27/18 10:30 09/26/18 10:29 08/28/18 08:24 Clopidogrel Bisulfate (Plavix) 75 mg DAILY ORAL 08/28/18 09:00 09/27/18 08:59 08/28/18 08:24 Dextrose (Dextrose 50%) 25 ml Q30M PRN IV Hypoglycemia 08/27/18 08:15 09/26/18 08:14 Dextrose (Dextrose 50%) 50 ml Q30M PRN IV Hypoglycemia 08/27/18 08:15 09/26/18 08:14 Insulin Aspart (NovoLOG) BEFORE MEALS AND HS SUBQ 08/27/18 16:30 09/26/18 16:29 Iopamidol (Isovue-300 100ml) 100 ml NOW PRN INJ Radiology Procedure 08/27/18 03:00 Magnesium Sulfate 100 ml @ 100 mls/hr Q1H IVPB 08/28/18 18:00 08/28/18 19:59 Metronidazole 100 ml @ 100 mls/hr Q8H IVPB 08/27/18 16:00 09/03/18 15:59 08/28/18 08:27 Morphine Sulfate (Morphine Sulfate) 2 mg Q4H PRN IVP Moderate Pain (Pain Scale 4-6) 08/27/18 08:15 09/03/18 08:14 08/28/18 15:42 Morphine Sulfate (Morphine Sulfate) 4 mg Q4H PRN IVP Severe Pain (Pain Scale 7-10) 08/27/18 08:15 09/03/18 08:14 Ondansetron HCl (Zofran) 4 mg Q4H PRN IVP Nausea & Vomiting 08/27/18 08:15 09/26/18 08:14 08/27/18 08:30 Potassium Chloride 100 ml @ 100 mls/hr Q1H IVPB 08/28/18 13:00 08/28/18 16:59 08/28/18 15:51 Sodium Chloride 1,000 ml @ 75 mls/hr [id number] IV 08/27/18 08:15 09/26/18 08:14 08/28/18 12:38 Assessment/Plan Status: not improved Assessment/Plan opioid dependence anxiety d/o depression Ativan prn Remeron 15mg qhs Vy Roberson MD Aug 28, 2018 16:41
[2018-08-28] MEDS: LORazepam 1mg tab ORAL PRN ×2 (16:49→23:19)
[2018-08-28] MEDS: cefTRIAXone 1 GM in D5W 50 ML IVPB SCH (18:09)
[2018-08-28 20:00] VITALS: BP 113/69
[2018-08-29] VITALS: BP 128/76
[2018-08-29] MEDS: Morphine Sulfate 4mg/ml Inj (IV/IM USE ONLY) IVP PRN ×2 (00:15→06:09)
[2018-08-29 04:00] VITALS: BP 142/80
[2018-08-29] MEDS: NovoLOG Insulin Flexpen SUBQ SCH ×3 (06:30→16:54)
[2018-08-29 06:55] LABS: ANION GAP 5 mmol/L (5-15); BLOOD UREA NITROGEN 4 mg/dL (7-18); CALCIUM 8.6 MG/DL (8.5-10.1); CARBON DIOXIDE 28 MMOL/L (21-32); CHLORIDE 107 MMOL/L (98-107); CREATININE 0.7 MG/DL (0.55-1.30); POTASSIUM 3.3 MMOL/L (3.5-5.1); SODIUM 140 MMOL/L (136-145)
[2018-08-29 07:04] LABS: BASOPHILS % (AUTO) 0.9 % (0.0-2.0); EOSINOPHILS % (AUTO) 2.9 % (0.0-3.0); HEMATOCRIT 35.6 % (42.0-52.0); HEMOGLOBIN 12.8 G/DL (14.2-18.0); LYMPHOCYTES % (AUTO) 19.2 % (20.0-45.0); MEAN CORPUSCULAR VOLUME 93 FL (80-99); MONOCYTES % (AUTO) 7.5 % (1.0-10.0); NEUTROPHILS % (AUTO) 69.4 % (45.0-75.0); PLATELET COUNT 170 K/UL (150-450); RED BLOOD COUNT 3.83 M/UL (4.70-6.10); RED CELL DISTRIBUTION WIDTH 10.7 % (11.6-14.8); WHITE BLOOD COUNT 8.2 K/UL (4.8-10.8)
[2018-08-29 08:00] VITALS: BP 137/83
[2018-08-29] MEDS: Cilostazol 100mg tab ORAL SCH (08:35)
[2018-08-29] MEDS ORDERED: Tubing IV Secondary IV ONE (08:41)
[2018-08-29] MEDS ORDERED: NS 275ml ONE (08:41)
[2018-08-29 12:00] VITALS: BP 123/78
--- NOTE | 2018-08-29 15:48 | Internal Med Progress Note ---
Subjective Date of Service: Aug 28, 2018 Physician Name Da Ness Attending Physician Jerry Bolivar MD Current Medications Medications (Trade) Dose Ordered Sig/Manuel Route PRN Reason Start Time Stop Time Status Last Admin Dose Admin Acetaminophen (Tylenol) 650 mg Q6H PRN ORAL Mild Pain/Temp > 100.5 08/27/18 08:15 09/26/18 08:14 Ceftriaxone Sodium 1 gm/ Dextrose 50 ml @ 100 mls/hr Q24H IVPB 08/27/18 17:00 09/03/18 16:59 08/28/18 18:09 Cilostazol (Pletal) 100 mg Q12HR ORAL 08/27/18 10:30 09/26/18 10:29 08/29/18 08:35 Clopidogrel Bisulfate (Plavix) 75 mg DAILY ORAL 08/28/18 09:00 09/27/18 08:59 08/29/18 08:35 Dextrose (Dextrose 50%) 25 ml Q30M PRN IV Hypoglycemia 08/27/18 08:15 09/26/18 08:14 Dextrose (Dextrose 50%) 50 ml Q30M PRN IV Hypoglycemia 08/27/18 08:15 09/26/18 08:14 Insulin Aspart (NovoLOG) BEFORE MEALS AND HS SUBQ 08/27/18 16:30 09/26/18 16:29 08/29/18 11:48 Iopamidol (Isovue-300 100ml) 100 ml NOW PRN INJ Radiology Procedure 08/27/18 03:00 Lorazepam (Ativan) 1 mg Q6H PRN ORAL For Anxiety 08/28/18 16:45 09/04/18 16:44 08/28/18 23:19 Metronidazole 100 ml @ 100 mls/hr Q8H IVPB 08/27/18 16:00 09/03/18 15:59 08/29/18 08:35 Mirtazapine (Remeron) 7.5 mg BEDTIME ORAL 08/28/18 21:00 09/27/18 20:59 08/28/18 20:42 Morphine Sulfate (Morphine Sulfate) 2 mg Q4H PRN IVP Moderate Pain (Pain Scale 4-6) 08/27/18 08:15 09/03/18 08:14 08/28/18 19:58 Morphine Sulfate (Morphine Sulfate) 4 mg Q4H PRN IVP Severe Pain (Pain Scale 7-10) 08/27/18 08:15 09/03/18 08:14 08/29/18 06:09 Ondansetron HCl (Zofran) 4 mg Q4H PRN IVP Nausea & Vomiting 08/27/18 08:15 09/26/18 08:14 08/27/18 08:30 Sodium Chloride 1,000 ml @ 75 mls/hr [id number] IV 08/27/18 08:15 09/26/18 08:14 08/29/18 15:13 Allergies: Coded Allergies: No Known Allergies (Unverified , 08/27/18) ROS Limited/Unobtainable: No Constitutional: Reports: no symptoms HEENT: Reports: no symptoms Cardiovascular: Reports: no symptoms Respiratory: Reports: no symptoms Gastrointestinal/Abdominal: Reports: no symptoms Genitourinary: Reports: no symptoms Neurologic/Psychiatric: Reports: no symptoms Subjective 78 YO M admitted with nausea, vomiting and epigastric pain. Now Sm Bowel enteritis. Cover for Int kristi-Dr Bolivar Objective Last Vital Signs Date Time Temp Pulse Resp B/P (MAP) Pulse Ox O2 Delivery O2 Flow Rate FiO2 08/29/18 12:00 97.9 100 17 123/78 (93) 96 08/29/18 09:00 Room Air General Appearance: WD/WN, no apparent distress, alert, thin EENT: PERRL/EOMI, normal ENT inspection Neck: non-tender, normal alignment, supple, normal inspection Cardiovascular: normal peripheral pulses, normal rate, regular rhythm, no gallop/murmur, no JVD Respiratory/Chest: chest wall non-tender, lungs clear, normal breath sounds, no respiratory distress, no accessory muscle use Abdomen: normal bowel sounds, no organomegaly, no mass, decreased bowel sounds , guarding, tender Extremities: normal range of motion, non-tender Neurologic: manager technical training II-XII grossly normal, no motor/sensory deficits Laboratory Tests Test 08/29/18 05:10 White Blood Count 8.2 K/UL (4.8-10.8) Red Blood Count 3.83 M/UL (4.70-6.10) L Hemoglobin 12.8 G/DL (14.2-18.0) L Hematocrit 35.6 % (42.0-52.0) L Mean Corpuscular Volume 93 FL (80-99) Mean Corpuscular Hemoglobin 33.4 PG (27.0-31.0) H Mean Corpuscular Hemoglobin Concent 35.9 G/DL (32.0-36.0) Red Cell Distribution Width 10.7 % (11.6-14.8) L Platelet Count 170 K/UL (150-450) Mean Platelet Volume 6.0 FL (6.5-10.1) L Neutrophils (%) (Auto) 69.4 % (45.0-75.0) Lymphocytes (%) (Auto) 19.2 % (20.0-45.0) L Monocytes (%) (Auto) 7.5 % (1.0-10.0) Eosinophils (%) (Auto) 2.9 % (0.0-3.0) Basophils (%) (Auto) 0.9 % (0.0-2.0) Sodium Level 140 MMOL/L (136-145) Potassium Level 3.3 MMOL/L (3.5-5.1) L Chloride Level 107 MMOL/L (98-107) Carbon Dioxide Level 28 MMOL/L (21-32) Anion Gap 5 mmol/L (5-15) Blood Urea Nitrogen 4 mg/dL (7-18) L Creatinine 0.7 MG/DL (0.55-1.30) Estimat Glomerular Filtration Rate mL/min (>60) Glucose Level 98 MG/DL (74-106) Calcium Level 8.6 MG/DL (8.5-10.1) Intake and Output 08/28/18 08/29/18 19:00 07:00 Intake Total 1175 ml 850 ml Output Total 800 ml Balance 375 ml 850 ml Intake Oral 600 ml IV Total 575 ml 850 ml Output Urine Total 800 ml # Bowel Movements 1 Assessment/Plan Problem List: (1) Epigastric pain (2) Regional enteritis of small bowel Assessment & Plan: Continue ceftriaxone and flagyl per ID (3) Nausea & vomiting Assessment & Plan: Continue zofran (4) CAD (coronary artery disease) (5) Diabetes mellitus Assessment & Plan: Continue novolog sliding scale Status: progressing Da Ness MD Aug 29, 2018 15:48
--- NOTE | 2018-08-29 15:49 | Internal Med Progress Note ---
Subjective Date of Service: Aug 29, 2018 Physician Name Da Ness Attending Physician Jerry Bolivar MD Current Medications Medications (Trade) Dose Ordered Sig/Manuel Route PRN Reason Start Time Stop Time Status Last Admin Dose Admin Acetaminophen (Tylenol) 650 mg Q6H PRN ORAL Mild Pain/Temp > 100.5 08/27/18 08:15 09/26/18 08:14 Ceftriaxone Sodium 1 gm/ Dextrose 50 ml @ 100 mls/hr Q24H IVPB 08/27/18 17:00 09/03/18 16:59 08/28/18 18:09 Cilostazol (Pletal) 100 mg Q12HR ORAL 08/27/18 10:30 09/26/18 10:29 08/29/18 08:35 Clopidogrel Bisulfate (Plavix) 75 mg DAILY ORAL 08/28/18 09:00 09/27/18 08:59 08/29/18 08:35 Dextrose (Dextrose 50%) 25 ml Q30M PRN IV Hypoglycemia 08/27/18 08:15 09/26/18 08:14 Dextrose (Dextrose 50%) 50 ml Q30M PRN IV Hypoglycemia 08/27/18 08:15 09/26/18 08:14 Insulin Aspart (NovoLOG) BEFORE MEALS AND HS SUBQ 08/27/18 16:30 09/26/18 16:29 08/29/18 11:48 Iopamidol (Isovue-300 100ml) 100 ml NOW PRN INJ Radiology Procedure 08/27/18 03:00 Lorazepam (Ativan) 1 mg Q6H PRN ORAL For Anxiety 08/28/18 16:45 09/04/18 16:44 08/28/18 23:19 Metronidazole 100 ml @ 100 mls/hr Q8H IVPB 08/27/18 16:00 09/03/18 15:59 08/29/18 08:35 Mirtazapine (Remeron) 7.5 mg BEDTIME ORAL 08/28/18 21:00 09/27/18 20:59 08/28/18 20:42 Morphine Sulfate (Morphine Sulfate) 2 mg Q4H PRN IVP Moderate Pain (Pain Scale 4-6) 08/27/18 08:15 09/03/18 08:14 08/28/18 19:58 Morphine Sulfate (Morphine Sulfate) 4 mg Q4H PRN IVP Severe Pain (Pain Scale 7-10) 08/27/18 08:15 09/03/18 08:14 08/29/18 06:09 Ondansetron HCl (Zofran) 4 mg Q4H PRN IVP Nausea & Vomiting 08/27/18 08:15 09/26/18 08:14 08/27/18 08:30 Sodium Chloride 1,000 ml @ 75 mls/hr [id number] IV 08/27/18 08:15 09/26/18 08:14 08/29/18 15:13 Allergies: Coded Allergies: No Known Allergies (Unverified , 08/27/18) ROS Limited/Unobtainable: No Constitutional: Reports: no symptoms HEENT: Reports: no symptoms Cardiovascular: Reports: no symptoms Respiratory: Reports: no symptoms Gastrointestinal/Abdominal: Reports: no symptoms Genitourinary: Reports: no symptoms Neurologic/Psychiatric: Reports: no symptoms Subjective 78 YO M admitted with nausea, vomiting and epigastric pain. Now Sm Bowel enteritis. Cover for Int kristi-Dr Bolivar Objective Last Vital Signs Date Time Temp Pulse Resp B/P (MAP) Pulse Ox O2 Delivery O2 Flow Rate FiO2 08/29/18 12:00 97.9 100 17 123/78 (93) 96 08/29/18 09:00 Room Air Laboratory Tests Test 08/29/18 05:10 White Blood Count 8.2 K/UL (4.8-10.8) Red Blood Count 3.83 M/UL (4.70-6.10) L Hemoglobin 12.8 G/DL (14.2-18.0) L Hematocrit 35.6 % (42.0-52.0) L Mean Corpuscular Volume 93 FL (80-99) Mean Corpuscular Hemoglobin 33.4 PG (27.0-31.0) H Mean Corpuscular Hemoglobin Concent 35.9 G/DL (32.0-36.0) Red Cell Distribution Width 10.7 % (11.6-14.8) L Platelet Count 170 K/UL (150-450) Mean Platelet Volume 6.0 FL (6.5-10.1) L Neutrophils (%) (Auto) 69.4 % (45.0-75.0) Lymphocytes (%) (Auto) 19.2 % (20.0-45.0) L Monocytes (%) (Auto) 7.5 % (1.0-10.0) Eosinophils (%) (Auto) 2.9 % (0.0-3.0) Basophils (%) (Auto) 0.9 % (0.0-2.0) Sodium Level 140 MMOL/L (136-145) Potassium Level 3.3 MMOL/L (3.5-5.1) L Chloride Level 107 MMOL/L (98-107) Carbon Dioxide Level 28 MMOL/L (21-32) Anion Gap 5 mmol/L (5-15) Blood Urea Nitrogen 4 mg/dL (7-18) L Creatinine 0.7 MG/DL (0.55-1.30) Estimat Glomerular Filtration Rate mL/min (>60) Glucose Level 98 MG/DL (74-106) Calcium Level 8.6 MG/DL (8.5-10.1) Intake and Output 08/28/18 08/29/18 19:00 07:00 Intake Total 1175 ml 850 ml Output Total 800 ml Balance 375 ml 850 ml Intake Oral 600 ml IV Total 575 ml 850 ml Output Urine Total 800 ml # Bowel Movements 1 Objective General Appearance: WD/WN, no apparent distress, alert, thin EENT: PERRL/EOMI, normal ENT inspection Neck: non-tender, normal alignment, supple, normal inspection Cardiovascular: normal peripheral pulses, normal rate, regular rhythm, no gallop/murmur, no JVD Respiratory/Chest: chest wall non-tender, lungs clear, normal breath sounds, no respiratory distress, no accessory muscle use Abdomen: normal bowel sounds, no organomegaly, no mass, decreased bowel sounds , guarding, tender Extremities: normal range of motion, non-tender Neurologic: paper box cutter II-XII grossly normal, no motor/sensory deficits Assessment/Plan Problem List: (1) Epigastric pain (2) Regional enteritis of small bowel Assessment & Plan: D/C ceftriaxone and flagyl per ID (3) Nausea & vomiting Assessment & Plan: Continue zofran (4) CAD (coronary artery disease) (5) Diabetes mellitus Assessment & Plan: Continue novolog sliding scale Status: stable Da Ness MD Aug 29, 2018 15:49
[2018-08-29 16:00] VITALS: BP 115/78
[2018-08-29 16:27] LABS: ANION GAP 6 mmol/L (5-15); BLOOD UREA NITROGEN 7 mg/dL (7-18); CALCIUM 8.4 MG/DL (8.5-10.1); CARBON DIOXIDE 25 MMOL/L (21-32); CHLORIDE 105 MMOL/L (98-107); CREATININE 0.8 MG/DL (0.55-1.30); POTASSIUM 3.9 MMOL/L (3.5-5.1); SODIUM 136 MMOL/L (136-145)
[2018-08-29] MEDS: cefTRIAXone 1 GM in D5W 50 ML IVPB SCH (18:16)
--- NOTE | 2018-08-30 23:13 | General Progress Note ---
Assessment/Plan Status: stable, progressing Assessment/Plan opioid dependence anxiety d/o depression Ativan prn Remeron 15mg qhs Subjective Date patient seen: Aug 29, 2018 Neurologic/Psychiatric: Reports: anxiety, depressed, emotional problems Allergies: Coded Allergies: No Known Allergies (Unverified , 08/27/18) Objective Intake and Output 08/29/18 08/30/18 19:00 07:00 Intake Total 1425 ml Output Total 502 ml Balance 923 ml Intake Oral 700 ml IV Total 725 ml Output Urine Total 502 ml # Voids 7 # Bowel Movements 2 Height (Feet): 5 Height (Inches): 3.00 Weight (Pounds): 110 General Appearance: no apparent distress, alert Neurologic: oriented x 3, responsive, depressed affect Vy Roberson MD Aug 30, 2018 23:13
--- NOTE | 2018-08-31 07:32 | Discharge Summary ---
Discharge Summary Discharge Summary _ DATE OF ADMISSION: 08/27/2018 DATE OF DISCHARGE: 04/28/2018 REASON FOR ADMISSION: 78 years old male with past medical history off coronary artery disease, status post percutaneous transluminal coronary angioplasty with stent placement type II , dyslipidemia, borderline diabetes, controlled with diet, presented to emergency department complaining of epigastric pain associated with nausea and nonbloody nonbilious vomiting , 1 episode of diarrhea. Upon evaluation vital signs were stable. Laboratory workup revealed no leukocytosis, stable hemoglobin and hematocrit. Total bilirubin 1.6. Urinalysis revealed no evidence of UTI. CT scan of abdomen and pelvis revealed distention of the proximal to mid small bowels, most probably enteritis , however possibility of partial small bowel obstruction was not excluded. Patient admitted with diagnoses of abdominal pain, possibly due to enteritis, coronary artery disease status post percutaneous transluminal coronary angioplasty with stent 2, dyslipidemia, diabetes mellitus type 2, dehydration. CONSULTANTS: pulmonary/winterizer Dr. Peñaloza ID specialist Dr. Chin GI specialist Dr. Galindo psychiatrist [facility]: Patient admitted to medical surgical floor. Patient started on generous IV hydration and kept nothing by mouth. GI and ID consults were requested. Patient started on broad-spectrum antibiotics. Pain management was addressed. DVT and GI prophylaxis provided. Home medications resumed. Blood sugar was closely monitored. [id number] Patient was treated symptomatically. Antiemetics provided as needed. Patient slowly started on clear liquid diet . No leukocytosis, no fevers, nausea and vomiting subsided , no further diarrhea. Diet was advanced as tolerated. Bilirubin down to 1.1 Renal parameters and electrolytes were closely monitored. Electrolytes corrected as needed. Psychiatrist seen and evaluated patient for anxiety and depression , and started patient on Remeron. Infectious disease specialist recommended to keep patient off antibiotics and observe closely . Patient was stable for discharge home. FINAL DIAGNOSES: gastroenteritis Ileus dehydration nausea ,vomiting and diarrhea secondary to gastroenteritis -resolved abdominal pain, secondary to gastroenteritis - resolved coronary artery disease with history of [employer] and stent x 2 dyslipidemia diabetes mellitus anxiety depression DISCHARGE MEDICATIONS: See Medication Reconciliation list. DISCHARGE INSTRUCTIONS: Patient was discharged home . Follow up with primary care provider in one week. I have been assigned to dictate discharge summary for this account. I was not involved in the patient's management. Valerie Valdivia NP Aug 31, 2018 07:32
== END 2018-08-29 18:21 | disposition home or self-care (01) | DRG 392 ==
LOC: EMR 03:12 → 4E 03:15 → EDBEDREQ 05:25
DX: K52.9 Noninfective gastroenteritis and colitis, unspecified (principal); K56.7 Ileus, unspecified; F11.20 Opioid dependence, uncomplicated; E86.0 Dehydration; I25.10 Atherosclerotic heart disease of native coronary artery without angina pectoris; Z95.5 Presence of coronary angioplasty implant and graft; E78.5 Hyperlipidemia, unspecified; E11.9 Type 2 diabetes mellitus without complications; F41.9 Anxiety disorder, unspecified; F32.9 Major depressive disorder, single episode, unspecified; Z79.84 Long term (current) use of oral hypoglycemic drugs; Z79.02 Long term (current) use of antithrombotics/antiplatelets; Z79.82 Long term (current) use of aspirin
CPT/HCPCS: 36415; 74177; 80048; 80053; 81003; 82248; 82962; 83036; 83690; 83735; 84100; 85025; 85610; 85651; 85730; 86140; 93005; 96361; 96374; 96375; 99285; J1815; J2405